=== PATIENT | female | born 1955 | race Caucasian/White ===

== ENCOUNTER 2018-11-11 07:08 | Day surgery (SDC) | payer BC, OTHER ==
[2018-11-06 14:23] VITALS: BMI 32.3
--- NOTE | 2018-11-10 10:17 | HP ---
Admitting History and Physical - Primary Care Physician PCP: Marybeth Lunsford - Admission Chief Complaint: right breast cancer History of Present Illness: Patient is a 63 yo female noted to have a suspicious right breast distortion/ mass at 11-12 oclock on mammo and US. 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 ER/NH positive HER-2 negative. An MRI was c/w known cancer without evidence of multifocal or contralateral dz. The patient is presenting for a right breast WE with NL, snbx possible andx. History Source: Patient Limitations to Obtaining History: No Limitations - Past Medical History Cardiovascular: Yes: HTN - Past Surgical History Past Surgical History: Yes: Tonsillectomy (1960), Vein Stripping/Ligation Additional Past Surgical History: abdominal lap () sec to endometriosis myomectomy 1989 - Smoking History Smoking history: Never smoked - Alcohol/Substance Use Hx Alcohol Use: No Home Medications - Allergies Allergies/Adverse Reactions: Allergies Allergy/AdvReac Type Severity Reaction Status Date / Time Penicillins Allergy Verified 11/06/18 14:00 Sulfa (Sulfonamide Allergy Verified 11/06/18 14:00 Antibiotics) - Home Medications Home Medications: Ambulatory Orders Olmesartan/Hydrochlorothiazide [Olmesartan-Hctz 40-12.5 mg Tab] 1 each PO DAILY 11/06/18 Family Disease History - Family Disease History Other Family History: niece-bone cancer Review of Systems - Review of Systems Eyes: reports: Blurred Vision Respiratory: reports: SOB Gastrointestinal: reports: Constipation Musculoskeletal: reports: Back Pain, Other (neck pain) Physical Examination Constitutional: Yes: Well Nourished Cardiovascular: Yes: WNL Respiratory: Yes: WNL Breast(s): Yes: Other (Breasts are diffusely nodular without suspicious masses or adenopathy noted bilaterally) Problem List - Problems (1) Breast cancer, right Code(s): C50.911 - MALIGNANT NEOPLASM OF UNSP SITE OF RIGHT FEMALE BREAST Qualifiers: Breast location: upper outer quadrant of breast Estrogen receptor status: positive Patient sex: female Qualified Code(s): C50.411 - Malignant neoplasm of upper-outer quadrant of right female breast; Z17.0 - Estrogen receptor positive status [ER+] Assessment/Plan Plan: Right breast WE with NL, SNBx, lymphoscintogram possible axillary node dissection
[2018-11-11] MEDS ORDERED: BUPIVACAINE HCL/PF 2.5 MG/ML - 30 ML VIAL IJ ONE (08:34)
[2018-11-11] MEDS ORDERED: ISOSULFAN BLUE 10 MG/ML VIAL SQ ONE (08:34)
[2018-11-11] MEDS ORDERED: LIDOCAINE HCL 1% PRESERVATIVE FREE - 30ML VIAL ONE (08:35)
[2018-11-11] MEDS ORDERED: SCOPOLAMINE HYDROBROMIDE 1 PATCH PATCH.TD72 ONE (09:41)
[2018-11-11] MEDS ORDERED: PROPOFOL 20 ML ONE ×6 (09:46→10:32)
[2018-11-11] MEDS ORDERED: MIDAZOLAM HCL 2 MG/2 ML SINGLE DOSE VIAL ONE (09:46)
[2018-11-11] MEDS ORDERED: PHENYLEPHRINE HCL 10 MG/1 ML SINGLE DOSE VIAL ONE (10:08)
[2018-11-11] MEDS ORDERED: ceFAZolin SODIUM 1 GM VIAL ONE (10:09)
[2018-11-11] MEDS ORDERED: ONDANSETRON 4 MG/2 ML VIAL ONE (10:31)
[2018-11-11] MEDS ORDERED: KETOROLAC TROMETHAMINE 30 MG/1 ML VIAL ONE (10:47)
[2018-11-11] MEDS ORDERED: BUPIVACAINE HCL/PF 0.25% (2.5MG/ML) 10 ML VIAL IJ ONE (11:18)
[2018-11-11] MEDS ORDERED: oxyCODONE HCL 5 MG TABLET PO PRN (11:35)
[2018-11-11] MEDS ORDERED: ONDANSETRON 4 MG/2 ML VIAL IVPUSH PRN (11:35)
[2018-11-11] MEDS ORDERED: LACTATED RINGERS SOLUTION 1,000 ML IV SCH (11:45)
[2018-11-11 12:43] VITALS: TEMP 97.7
[2018-11-11 14:22] VITALS: BP 101/56; PULSE 72
--- NOTE | 2018-11-11 21:12 | OP ---
DATE OF OPERATION: 11/11/2018 PREOPERATIVE DIAGNOSIS: Right breast cancer. POSTOPERATIVE DIAGNOSIS: Right breast cancer. PROCEDURE: Right mammographically localized partial mastectomy with sentinel node biopsy. ANESTHESIA: General intubated. ATTENDING SURGEON: Marybeth Bains MD MOTHERS HELPER: TRESA Duran ESTIMATED BLOOD LOSS: Minimal. COMPLICATIONS: None. DESCRIPTION OF PROCEDURE: The patient was made aware of the risks and benefits of the procedure and consented. She was placed in a supine position after going to the Radiology suite where a needle was placed next to the indexed lesion. After general anesthesia was induced, the patient was intubated. Then 2.5 mL of 1% Isosulfan Blue was locally infiltrated into the peritumoral right breast tissue. The operative site was prepped and draped in the usual sterile fashion. Waiting approximately 10 minutes with gently manual compression, a curvilinear incision was made in the right axilla. Using blunt and sharp dissection, tissues were dissected down to the axillary fat where a cluster of blue lymph nodes were identified and surgically excised and submitted for permanent sectioning. One of these lymph nodes felt somewhat firm and suspicious, but none of the lymph nodes or areas in the axilla felt suspicious. The wound was copiously irrigated with normal saline. Hemostasis maintained by electrocautery. The wound was closed with deep 3-0 Vicryl followed by a running subcuticular 4-0 Monocryl. The breast was then approached. The curvilinear periareolar incision was then made. Using electrocautery, thick skin flaps were made superior to the needle. The needle was drawn through the puncture site and a wire through the bone. Tissues around the wire were then sharply excised and then submitted with a short suture superior, long suture lateral. A specimen radiograph confirmed the presence of the indexed lesion. This was submitted for permanent section. Additional segments were taken superomedial, inferolateral, and anterior with clips at the new margins. The wound was copiously irrigated with normal saline. Hemostasis was maintained by electrocautery. Breast tissue was taken off the pectoralis muscle and rotated into the defect with multiple layers of [id number] sutures of 2-0 Vicryl. The skin was then closed with deep 3-0 Vicryl followed by running subcuticular 4-0 Monocryl. Steri-Strips, sterile dressing, and a compression bra were applied after injecting the area with 0.5% bupivacaine. The patient tolerated the procedure well and was transferred to the recovery room in excellent condition. Victoria [id number]
--- NOTE | 2018-11-14 17:03 | PATH ---
Surgical Pathology Report Patient Name: LUCINA BLAIR [facility]. Rec. #: [id number] /Age/Gender: 1955 (Age: 63) / F Account: [id number] Location: [facility] AMBULATORY Taken: 11/11/2018 Received: 11/11/2018 Reported: 11/14/2018 Physicians: Marybeth Lunsford M.D. Specimen(s) Received A: RIGHT AXILLARY SENTINEL NODES B: RIGHT BREAST WIDE EXCISION C: RIGHT BREAST ANTERIOR MARGIN D: RIGHT BREAST POSTERIOR MARGIN E: RIGHT BREAST MEDIAL MARGIN F: RIGHT BREAST LATERAL MARGIN G: RIGHT BREAST INFERIOR MARGIN H: RIGHT BREAST SUPERIOR MARGIN Clinical History Invasive lobular carcinoma Final Diagnosis A. RIGHT AXILLARY SENTINEL NODES, EXCISION: METASTATIC CARCINOMA, INVOLVING ONE OF THREE LYMPH NODES (1/3). THE FOCUS OF METASTATIC CARCINOMA MEASURES 1 CM IN GREATEST DIMENSION (MACROMETASTASIS). EXTRANODAL EXTENSION PRESENT. B. RIGHT BREAST, WIDE EXCISION: INVASIVE LOBULAR CARCINOMA, PLEOMORPHIC TYPE, WITH FOCAL SIGNET RING FEATURES, MODERATELY DIFFERENTIATED (TUBULE SCORE 3/3, NUCLEAR GRADE: 3/3, MITOTIC SCORE: 1/3, TOTAL SCORE 7/9, EMIGDIO GRADE 2), MEASURING 2 CM IN GREATEST DIMENSION, GROSSLY. LOBULAR CARCINOMA IN SITU (LCIS), CLASSICAL AND PLEOMORPHIC TYPE, FOCAL. SUPERIOR AND LATERAL MARGINS ARE POSITIVE FOR INVASIVE LOBULAR CARCINOMA. SEE SPECIMEN C TO H FOR FINAL MARGINS. LYMPHOVASCULAR INVASION IDENTIFIED. NO SKIN OR NIPPLE PRESENT. PRIOR BIOPSY SITE CHANGES ARE PRESENT. PATHOLOGIC STAGE (pTNM): pT1c pN1a SEE ALSO INVASIVE CARCINOMA CASE SUMMARY BELOW. C. RIGHT BREAST ANTERIOR MARGIN, EXCISION: BENIGN ADIPOSE TISSUE. NEGATIVE FOR CARCINOMA. D. RIGHT BREAST POSTERIOR MARGIN, EXCISION: BENIGN BREAST TISSUE. E. RIGHT BREAST MEDIAL MARGIN, EXCISION: BREAST TISSUE WITH INTRADUCTAL PAPILLOMA AND BENIGN PROLIFERATIVE FIBROCYSTIC CHANGES. F. RIGHT BREAST LATERAL MARGIN, EXCISION: BENIGN BREAST TISSUE. G. RIGHT BREAST INFERIOR MARGIN, EXCISION: LOBULAR CARCINOMA IN SITU (LCIS), CLASSICAL TYPE. H. RIGHT BREAST SUPERIOR MARGIN, EXCISION: LOBULAR CARCINOMA IN SITU (LCIS), CLASSICAL TYPE. Comment: Immunohistochemical stain done on block B4, G3, H1, and H3 performed and interpreted at [facility] shows the tumor cells are negative for E-cadherin; P120 catenin done on block B3 performed at [place], [place] ([id number]) and interpreted at [facility] shows a cytoplasmic staining pattern, with the loss of membrane staining. The above results support a lobular phenotype. Immunohistochemical stain AE1/AE3 (block B2) performed and interpreted at [facility] highlights the invasive carcinoma at the cauterized superior margin. Comments Breast Invasive Carcinoma: Surgical Pathology Case Summary (Based on AJCC TNM 8 th edition) Procedure _x_ Excision (less than total mastectomy) Specimen Laterality _x_ Right Tumor Size _x_ Greatest dimension of largest invasive focus >1 mm (specify exact measurement) (millimeters): 20mm Histologic Type _x_ Invasive lobular carcinoma, pleomorphic type Histologic Grade (Emigdio Histologic Score) Glandular (Acinar)/Tubular Differentiation _x_ Score 3 (<10% of tumor area forming glandular/tubular structures) Nuclear Pleomorphism _x_ Score 3 Mitotic Rate _x_ Score 1 Overall Grade _x_ Grade 2 (scores of 6 or 7) Tumor Focality _x_ Single focus of invasive carcinoma Ductal Carcinoma In Situ (DCIS) _x_ No DCIS in specimen Margins Invasive Carcinoma Margins _x_ Uninvolved by invasive carcinoma Distance from closest margin (millimeters): cannot be determined. The lateral and superior margins were involved by the invasive carcinoma in the wide excision (specimen B). However the final margins are negative for carcinoma (see specimen F and H) Regional Lymph Nodes Number of Lymph Nodes with Macrometastases (>2 mm): 1 Number of Lymph Nodes with Micrometastases (>0.2 mm to 2 mm and/or >200 cells): 0 Number of Lymph Nodes with Isolated Tumor Cells (=0.2 mm and =200 cells): 0 Size of Largest Metastatic Deposit (millimeters): 10mm Extranodal Extension: _x_ Present Number of Lymph Nodes Examined: 3 Number of Prescott Nodes Examined: 3 Treatment Effect No known presurgical therapy Lymphovascular Invasion _x_ Identified Pathologic Stage Classification (pTNM, AJCC 8th Edition) Primary Tumor (Invasive Carcinoma) (pT) _x_ pT1c: Tumor >10 mm but =20 mm in greatest dimension Regional Lymph Nodes (pN) Modifier (required only if applicable) _x_ (sn): Prescott node(s) evaluated. If 6 or more nodes (sentinel or nonsentinel) are removed, this modifier should not be used. Category (pN) _x_ pN1a: Metastases in 1 to 3 axillary lymph nodes, at least 1 metastasis larger than 2.0 mm Biomarker Studies Results of ER and CO studies performed on this specimen (block# B4) at [facility] are as follows: ER (clone [id number] mouse monoclonal antibody by [employer]): 100% nuclear staining with strong intensity (Positive). CO (clone16 mouse monoclonal antibody by [employer]): 30% nuclear staining with strong intensity (Positive). Results of Her2 (IHC) & Ki-67 studies performed on this specimen (block# B3) at [place], [place] ([id number]) are as follows: Her2 IHC (EP3 from [employer], formerly known as [id number], using Sweet [employer] Refine detection kit): Negative (0) Ki67: 20% (intermediate proliferative index) Positive and negative controls (internal if applicable) show appropriate results. Formalin fixation and cold ischemic times are within current ASCO/CAP recommendations for ER, CO and Her2 testing. Electronically Signed Maria E Guillaume M.D. Gross Description A. Received in formalin labeled "right axillary sentinel node," are 3 polo lymph nodes ranging from 0.1-1.4 cm in greatest dimension. The lymph nodes are entirely submitted in 3 cassettes as follows: 1-2-one bisected lymph node each; 3-one trisected lymph node. B. Received in formalin, labeled "right breast wide excision," is a 5.8 x 4.5 x 3.6 cm. polo-yellow, irregular, portion of fibroadipose tissue with a needle localization wire present. There is a short suture marking the superior aspect and a long suture marking the lateral aspect, per the surgeon. There is no skin or nipple present. The specimen is inked as follows: superior and lateral blue; inferior green; medial yellow; anterior red; deep black. The specimen is serially sectioned from medial to lateral. Sectioning reveals a 2.0 x 1.0 x 1.0 cm polo, indurated mass focally abutting the superior margin. The mass is 0.4 cm from the deep margin and 0.8 cm from the anterior margin. [employer]st sections are submitted in 7 cassettes as follows: 1-4-mass with superior, anterior and deep margins; 5-lateral margin; 6-inferior margin; 7-medial margin. Time to formalin fixation: 11 minutes Total formalin fixation time: Approximately 31 hours. C. Received in formalin labeled "right breast anterior margin," is a 2.5 x 2.0 x 0.5 cm portion of fibroadipose tissue with a clip marking the new margin, per the surgeon. The new margin is inked blue and the specimen is serially sectioned. The specimen is entirely and sequentially submitted in 3 cassettes. D. Received in formalin labeled "right breast posterior margin," is a 4.0 x 2.8 x 2.3 cm portion of fibroadipose tissue with a clip marking the new margin, per the surgeon. The new margin is inked blue and the specimen is serially sectioned. The specimen is entirely and sequentially submitted in 8 cassettes. E. Received in formalin labeled "right breast medial margin," is a 3.0 x 2.1 x 1.1 cm portion of fibroadipose tissue with a clip marking the biopsy cavity side, per the surgeon. The new margin is inked blue and the specimen is serially sectioned. The specimen is entirely and sequentially submitted in 4 cassettes. F. Received in formalin labeled "right breast lateral margin," is a 3.0 x 2.5 x 0.8 cm portion of fibroadipose tissue with a clip marking the new margin, per the surgeon. The new margin is inked blue and the specimen is serially sectioned. The specimen is entirely and sequentially submitted in 3 cassettes. G. Received in formalin labeled "right breast inferior margin," is a 3.5 x 2.2 x 0.8 cm portion of fibroadipose tissue with a clip marking the new margin, per the surgeon. The new margin is inked blue and the specimen is serially sectioned. The specimen is entirely and sequentially submitted in 4 cassettes. H. Received in formalin labeled "right breast superior margin," is a 3.8 x 2.0 x 1.0 cm portion of fibroadipose tissue with a clip marking the new margin, per the surgeon. The new margin is inked blue and the specimen is serially sectioned. The specimen is entirely and sequentially submitted in 4 cassettes. DL11/12/2018 saudi11/12/2018
== END 2018-11-11 14:15 | disposition home or self-care (01) ==
LOC: FASU 07:08
PROVIDERS: ATTEND Surgery Surgical Oncology
PROC: 0HBT0ZZ Excision of Right Breast, Open Approach (ICD-10-PCS; principal; 2018-11-11 09:30)
PROC: 0JX60ZB Transfer Chest Subcutaneous Tissue and Fascia with Skin and Subcutaneous Tissue, Open Approach (ICD-10-PCS; 2018-11-11 09:30)
DX: C50.411 Malignant neoplasm of upper-outer quadrant of right female breast (principal); Z17.0 Estrogen receptor positive status [ER+]; I10 Essential (primary) hypertension
CPT/HCPCS: 19281; 88307-TC; 88341-TC; 88342-TC; 94760

== ENCOUNTER 2018-11-27 11:52 | Day surgery (SDC) | payer OTHER ==
--- NOTE | 2018-11-24 09:42 | HP ---
Admitting History and Physical - Primary Care Physician PCP: Marybeth Lunsford - Admission Chief Complaint: Right breast cancer History of Present Illness: 63 year old postmenapausal female S/P right breast wide excision with Sentenel node biopsy. Final pathology showed 20mm ER/MI+ HER2- poorly differentiated invasive lobular carcinoma pleomorphic, 1+ node with extranodal extension. Margins are clear but inferior and superior have LCIS classical type. She is here for right axillary node dissection. Pet scan showed no distant mets. History Source: Patient Limitations to Obtaining History: No Limitations - Past Medical History Cardiovascular: Yes: HTN - Past Surgical History Past Surgical History: Yes: Tonsillectomy (1960), Vein Stripping/Ligation Additional Past Surgical History: Right breast wide excision SNBX ILC with classical LCIs two margins SNBX path showed 1+ node with ARMAND Lap endometriosis 1990 myomectomy 1989 - Smoking History Smoking history: Never smoked - Alcohol/Substance Use Hx Alcohol Use: No Home Medications - Allergies Allergies/Adverse Reactions: Allergies Allergy/AdvReac Type Severity Reaction Status Date / Time Penicillins Allergy Intermediate Hives Verified 11/11/18 07:52 Sulfa (Sulfonamide Allergy Intermediate Hives Verified 11/11/18 07:52 Antibiotics) - Home Medications Home Medications: Ambulatory Orders Olmesartan/Hydrochlorothiazide [Olmesartan-Hctz 40-12.5 mg Tab] 1 each PO DAILY 11/06/18 Acetaminophen W/ Codeine #3 [Tylenol # 3 -] 1 - 2 tab PO Q6H #30 tablet MDD 6 Family Disease History - Family Disease History Other Family History: neice bone ca 19 Physical Examination Constitutional: Yes: No Distress Breast(s): Yes: Other ( incisions right breast and axilla healing well no signs of infection) Problem List - Problems (1) Breast cancer, right Code(s): C50.911 - MALIGNANT NEOPLASM OF UNSP SITE OF RIGHT FEMALE BREAST Qualifiers: Breast location: upper outer quadrant of breast Estrogen receptor status: positive Patient sex: female Qualified Code(s): C50.411 - Malignant neoplasm of upper-outer quadrant of right female breast; Z17.0 - Estrogen receptor positive status [ER+] Assessment/Plan Right axillary node dissection
[2018-11-24 16:55] VITALS: BMI 32.3
[2018-11-27] MEDS ORDERED: SCOPOLAMINE HYDROBROMIDE 1 PATCH PATCH.TD72 ONE (13:21)
[2018-11-27] MEDS ORDERED: DEXAMETHASONE SOD PHOSPHATE 4 MG/1 ML VIAL ONE (13:34)
[2018-11-27] MEDS ORDERED: ONDANSETRON 4 MG/2 ML VIAL ONE ×2 (13:34→15:38)
[2018-11-27] MEDS ORDERED: MIDAZOLAM HCL 2 MG/2 ML SINGLE DOSE VIAL ONE (13:34)
[2018-11-27] MEDS ORDERED: SUCCINYLCHOLINE CHLORIDE 200 MG/10 ML VIAL ONE (13:34)
[2018-11-27] MEDS ORDERED: LIDOCAINE HCL/PF 2% SDV 5ML VIAL ONE (13:34)
[2018-11-27] MEDS ORDERED: PROPOFOL 20 ML ONE (13:34)
[2018-11-27] MEDS ORDERED: ceFAZolin SODIUM 1 GM VIAL ONE (13:52)
[2018-11-27] MEDS ORDERED: ONDANSETRON 4 MG/2 ML VIAL IVPUSH PRN (14:09)
[2018-11-27] MEDS ORDERED: LACTATED RINGERS SOLUTION 1,000 ML IV SCH (14:15)
[2018-11-27] MEDS ORDERED: KETOROLAC TROMETHAMINE 30 MG/1 ML VIAL ONE (14:32)
[2018-11-27] MEDS ORDERED: FAMOTIDINE 20 MG PREMIXED IVPB IVPB ONE (15:55)
[2018-11-27] MEDS ORDERED: FAMOTIDINE 20 MG/50 ML IVPB 20 MG/50 ML MG IVPB ONE (15:57)
--- NOTE | 2018-11-27 17:27 | OP ---
DATE OF OPERATION: 11/27/2018 PREOPERATIVE DIAGNOSIS: Right breast cancer with axillary node metastasis. POSTOPERATIVE DIAGNOSIS: Right breast cancer with axillary node metastasis. PROCEDURE: Right axillary node dissection. ANESTHESIA: General, intubated. ATTENDING SURGEON: Marybeth Lunsford MD ESTIMATED BLOOD LOSS: Minimal. COMPLICATIONS: None. PROCEDURE: Patient was made aware of the risks and benefits of the procedure and consented. She was placed in the supine position. After general anesthesia was induced, the patient was intubated. The operative site was then prepped and draped in usual sterile fashion. The prior incision was enlarged using electrocautery. Tissues were dissected down to the axillary fat. A thick tissue flap was then made by dissecting down laterally to latissimus dorsi and medial to the lateral edge of the pectoralis. Taking the dissection superiorly, the axillary vein was noted. Along the lateral chest wall, the long thoracic nerve was identified and retracted medially, and the thoracodorsal trunk was identified laterally and retracted laterally. Tissues between the 2 were bluntly and sharply dissected free using electrocautery and hemoclips. Specimen was then submitted as right axillary contents. Palpation of the rest of the axilla and level 3 nodes revealed nothing suspicious. Through an inferior stab wound, a 15-Slovak drain was placed into the wound and sutured to the skin with 2-0 silk. The skin was then closed with deep 3-0 Vicryl, followed by a running subcuticular 4-0 Monocryl. Steri-Strips and sterile dressing were then applied, and the patient, having tolerated the procedure, was transferred to recovery in excellent condition. Victoria [id number]
[2018-11-28 06:39] VITALS: BP 91/47; PULSE 77; TEMP 98.3
[2018-11-28] MEDS: oxyCODONE HCL 5 MG TABLET PO PRN ×2 (06:58→13:42)
--- NOTE | 2018-11-28 10:05 | PN ---
Progress Note (short form) - Note Progress Note: Post op day#1.S/p Right axillary LN dissection under GA uneventful.Patient stable.No any anesthesia related problem.Patient DC from the anesthesia care.
--- NOTE | 2018-12-01 14:13 | PATH ---
Surgical Pathology Report Patient Name: LUCINA BLAIR [facility]. Rec. #: [id number] /Age/Gender: 1955 (Age: 63) / F Account: [id number] Location: [facility] AMBULATORY Taken: 11/27/2018 Received: 11/27/2018 Reported: 12/01/2018 Physicians: Marybeth Lunsford M.D. Specimen(s) Received RIGHT AXILLARY CONTENTS Clinical History Right breast cancer Final Diagnosis AXILLARY CONTENTS, RIGHT, DISSECTION:THIRTEEN LYMPH NODES NEGATIVE FOR CARCINOMA (0/13). NODULAR FAT NECROSIS AND REACTIVE CHANGES. Electronically Signed Amalia Kelly M.D. Gross Description Received in formalin labeled "right axillary contents," is a 9.0 x 8.0 x 3.5 cm aggregate of yellow adipose tissue. Sectioning reveals multiple lymph nodes ranging from 0.3-4.0 cm in greatest dimension. The lymph nodes are entirely submitted in 20 cassettes as follows: 1-5-one bisected lymph node each; 6-9-two whole lymph nodes each; 10-11-one bisected lymph node; 12-20-one whole serially sectioned possible lymph node (one full face bisected section in cassettes 12-13). 11/28/201811/28/2018
== END 2018-11-28 13:45 | disposition home or self-care (01) ==
LOC: FASU 11:52 → FM/S 17:03 → FASU 11-28 13:45
PROVIDERS: ATTEND Surgery Surgical Oncology
PROC: 07B50ZX Excision of Right Axillary Lymphatic, Open Approach, Diagnostic (ICD-10-PCS; principal; 2018-11-27 14:02)
DX: C50.411 Malignant neoplasm of upper-outer quadrant of right female breast (principal); C77.3 Secondary and unspecified malignant neoplasm of axilla and upper limb lymph nodes; Z17.0 Estrogen receptor positive status [ER+]
CPT/HCPCS: 88307-TC; 94760